=== PATIENT | male | born 1945 | race Caucasian/White ===

== ENCOUNTER 2022-03-17 05:20 | Day surgery (SDC) | payer MEDICARE, OTHER ==
[~2022-03-17] VITALS: Ht 172.7 cm; Wt 87.7 kg
[~2022-03-17 05:20] MED LIST: HYZAAR 12.5 MG-1 TAB PO; LIDODERM 5% PATC1 EA TP; TYLENOL 500MG500 MG PO; ULTRAM 50MG TAB50 MG PO; ZYLOPRIM 100MG100 MG PO; [UNRECOGNIZED DRUG - OTHER] PO
[2022-03-17 05:54] VITALS: BP 119/87; PULSE 88; TEMP 97.4
[2022-03-17] MEDS ORDERED: FLOMAX 0.40.4 MG/CAP PO (06:04)
[2022-03-17] MEDS ORDERED: COZAAR100 MG PO (06:05)
[2022-03-17] MEDS ORDERED: MICROZIDE12.5 MG PO (06:05)
[2022-03-17] MEDS ORDERED: TYLENOL 500MG500 MG PO (06:07)
[2022-03-17] MEDS ORDERED: NORCO 325 MG-51 TAB PO (07:12)
[2022-03-17 09:40] VITALS: BP 109/52; PULSE 65; TEMP 97.4
--- NOTE | 2022-03-17 09:40 | NUR ---
The patient arrived back to [facility] from the recovery room at this time. The patient appears alert and oriented and reports minimal pain in his abdomen at this time. The patient requests to try some coffee with creamer and sugar at this time. Post operative vital signs were started. The patient has three bandaids to his abdomen that appear clean, dry and intact. The patient has scrotal support in place at this itme. The patient's was brought back to be at his bedside. Call light is within reach. The patient denies any further needs.
[2022-03-17 09:55] VITALS: BP 98/58; PULSE 70
--- NOTE | 2022-03-17 09:55 | NUR ---
The patient appears to be tolerating the coffee well and agrees to try some vanilla pudding at this time. Vital signs appear stable. at bedside.
[2022-03-17 10:10] VITALS: BP 85/57; PULSE 59
--- NOTE | 2022-03-17 10:10 | NUR ---
The patient appears to be tolerating the pudding well. remains at bedside.
[2022-03-17 10:25] VITALS: BP 90/58; PULSE 62
--- NOTE | 2022-03-17 10:25 | NUR ---
The patient was given a PRN dose of [place] one tab prior to ambulating to the bathroom with the stand by assistance of one nurse and appeared to tolerate the activity well. The patient voided without difficulty and voices a desire to be discharged home. The nurse instructed the patient to get dressed and notify the staff when he is ready to review his discharge instructions.
--- NOTE | 2022-03-17 10:35 | NUR ---
The patient's IV to his right forearm was removed and a pressure dressing was applied to the site. Discharge instructions were reviewed with the patient and his at this time. They both verbalized understanding and has no questions for the nurse at this time. The patient is dressed and ready to be escorted ou.t
--- NOTE | 2022-03-17 10:45 | NUR ---
The patient was escorted out via wheelchair to a private vehicle by FUENTES Valenzuela. The patient's belongings and discharge paperwork were sent with him. The patient's is present to drive him home.
[2022-03-17 11:27] VITALS: BP 109/52; PULSE 66
== END 2022-03-17 10:45 | disposition home or self-care (01) ==
LOC: SDCO 05:20
DX: K40.20 Bilateral inguinal hernia, without obstruction or gangrene, not specified as recurrent (principal); D17.6 Benign lipomatous neoplasm of spermatic cord; Z87.891 Personal history of nicotine dependence
CPT/HCPCS: C1781; J0690; J1885; J2405; J2704; J3010; J7120